=== PATIENT | male | born 1970 | race Caucasian/White ===

== ENCOUNTER → 2018-11-04 | Day surgery (SDC) | payer OTHER ==
[~2018-11-04] MED LIST: ASPIR 8181 MG; CLONAZEPAM0.5 MG PO; DUI500 PO; ESCITALOPRAM OX10 MG PO; NITROSTAT0.4 MG SL; NORFLEX PO; PROVENTIL3 ML/2.5 M IH; RELAFEN PO; TRAM1TAB98 PO; ZITHROMAX500 MG PO; ZYNCOF 20-400120 ML PO
== END | disposition home or self-care (01) ==
LOC: EDSTATUS 10-28 08:00 → ADM 10-28 08:00 → CIR.AMB 07:00 → SURH 08:00 → EDSTATUS 08:00 → CIR.AMB 08:34
DX: M23.322 Other meniscus derangements, posterior horn of medial meniscus, left knee (principal); M23.42 Loose body in knee, left knee; M17.12 Unilateral primary osteoarthritis, left knee; M65.862 Other synovitis and tenosynovitis, left lower leg

== ENCOUNTER 2018-11-11 12:34 | Outpatient (CLI) | payer OTHER | END 2018-11-11 12:36 | disposition home or self-care (01) | LOC: RAD 12:34 | DX: M25.511 Pain in right shoulder (principal); M25.512 Pain in left shoulder ==

== ENCOUNTER → 2019-06-17 09:01 | Outpatient (CLI) | payer OTHER | END | disposition home or self-care (01) | LOC: LAB 09:01 | DX: J11.1 Influenza due to unidentified influenza virus with other respiratory manifestations (principal); A49.8 Other bacterial infections of unspecified site; R50.9 Fever, unspecified ==

== ENCOUNTER → 2020-09-15 06:35 | Outpatient (CLI) | payer OTHER | END | disposition home or self-care (01) | LOC: LAB 06:35 | PROVIDERS: ATTEND General Practice | DX: R07.89 Other chest pain (principal); R73.09 Other abnormal glucose; E78.2 Mixed hyperlipidemia; E78.00 Pure hypercholesterolemia, unspecified; R74.8 Abnormal levels of other serum enzymes; E87.8 Other disorders of electrolyte and fluid balance, not elsewhere classified; D50.8 Other iron deficiency anemias; N39.0 Urinary tract infection, site not specified; E55.9 Vitamin D deficiency, unspecified; Z83.49 Family history of other endocrine, nutritional and metabolic diseases; R97.8 Other abnormal tumor markers; Z12.11 Encounter for screening for malignant neoplasm of colon; N40.1 Benign prostatic hyperplasia with lower urinary tract symptoms ==

== ENCOUNTER → 2020-12-13 09:27 | Outpatient (CLI) | payer OTHER | END | disposition home or self-care (01) | LOC: LAB 09:27 | PROVIDERS: ATTEND Internal Medicine | DX: E78.2 Mixed hyperlipidemia (principal); E78.00 Pure hypercholesterolemia, unspecified ==

== ENCOUNTER 2021-03-04 10:03 | Emergency (ER) | payer OTHER ==
[~2021-03-04] VITALS: Ht 182.9 cm; Wt 93.4 kg
== END 2021-03-04 12:32 | disposition home or self-care (01) ==
LOC: ER 10:03
DX: Z48.02 Encounter for removal of sutures (principal)

== ENCOUNTER 2021-03-10 07:24 | Outpatient (CLI) | payer OTHER | END 2021-03-10 07:25 | disposition home or self-care (01) | LOC: NUCLEAR 07:24 | PROVIDERS: ATTEND Internal Medicine Cardiovascular Disease | DX: I20.1 Angina pectoris with documented spasm (principal) | CPT/HCPCS: 78452; 93017; A9500; J0153 ==

== ENCOUNTER → 2021-08-25 07:04 | Outpatient (CLI) | payer OTHER | END | disposition home or self-care (01) | LOC: LAB 07:04 | PROVIDERS: ATTEND Internal Medicine Gastroenterology | DX: K29.30 Chronic superficial gastritis without bleeding (principal) ==

== ENCOUNTER → 2021-10-04 09:11 | Outpatient (CLI) | payer OTHER | END | disposition home or self-care (01) | LOC: LAB 09:11 | PROVIDERS: ATTEND Internal Medicine | DX: R07.89 Other chest pain (principal); R73.09 Other abnormal glucose; E78.2 Mixed hyperlipidemia; E78.00 Pure hypercholesterolemia, unspecified; E87.8 Other disorders of electrolyte and fluid balance, not elsewhere classified; R74.01 Elevation of levels of liver transaminase levels; D50.8 Other iron deficiency anemias; N39.0 Urinary tract infection, site not specified; E55.9 Vitamin D deficiency, unspecified; Z83.49 Family history of other endocrine, nutritional and metabolic diseases; R97.8 Other abnormal tumor markers; Z12.11 Encounter for screening for malignant neoplasm of colon; N40.1 Benign prostatic hyperplasia with lower urinary tract symptoms ==

== ENCOUNTER 2021-11-21 15:10 | Outpatient (CLI) | payer OTHER | END 2021-11-21 15:30 | disposition home or self-care (01) | LOC: PPH VACUNA 15:10 | PROVIDERS: ATTEND Emergency Medicine Pediatric Emergency Medicine | DX: Z23 Encounter for immunization (principal) ==

== ENCOUNTER 2021-12-27 08:02 | Outpatient (CLI) | payer OTHER | END 2021-12-27 08:11 | disposition home or self-care (01) | LOC: LAB 08:02 | PROVIDERS: ATTEND Internal Medicine | DX: R73.09 Other abnormal glucose (principal); E87.8 Other disorders of electrolyte and fluid balance, not elsewhere classified; R74.01 Elevation of levels of liver transaminase levels; E78.2 Mixed hyperlipidemia; E78.00 Pure hypercholesterolemia, unspecified; D50.8 Other iron deficiency anemias; N39.0 Urinary tract infection, site not specified; E55.9 Vitamin D deficiency, unspecified; R97.8 Other abnormal tumor markers; Z12.11 Encounter for screening for malignant neoplasm of colon ==